=== PATIENT | female | born 1955 | race Caucasian/White ===

== ENCOUNTER 2018-06-23 15:24 | Outpatient (REF) | payer BC, SELFPAY ==
[2018-06-23 21:25] LABS: Cholesterol 223 mg/dL (50-200); HDL Cholesterol 64 mg/dL (40-60); LDL CHOLESTEROL 140 mg/dL (<100); TSH (W/Ref FT4) 1.26 uIU/mL (0.358-3.74); Triglyceride 139 mg/dL (30-150); Vitamin B12 376 pg/mL (193-986)
== END 2018-06-23 15:44 ==
LOC: NCHCN 15:24
PROVIDERS: PCP Internal Medicine; Visit Provider Nurse Practitioner Family
DX: F41.1 Generalized anxiety disorder (principal); E03.9 Hypothyroidism, unspecified
CPT/HCPCS: 80061; 82306; 83721; 82607; 84443

== ENCOUNTER 2019-08-13 12:22 | Outpatient (REF) | payer BC, SELFPAY ==
[2019-08-13 21:40] LABS: TSH 1.32 uIU/mL (0.36-3.74)
== END 2019-08-13 12:42 ==
LOC: NCHCN 12:22
PROVIDERS: PCP Internal Medicine; Visit Provider Internal Medicine
DX: E03.9 Hypothyroidism, unspecified (principal)
CPT/HCPCS: 84443

== ENCOUNTER 2021-06-16 07:59 | Outpatient (REF) | payer MEDICARE, BC, SELFPAY ==
[2021-06-16 14:57] LABS: Anion Gap 5.5 mmol/L (3-11); BUN 11 mg/dL (7-18); CO2 31.5 mmol/L (21.0-32.0); CREATININE 0.9 mg/dL (0.55-1.02); Calcium 9.4 mg/dL (8.5-10.1); Calculated LDL 130 mg/dL (<100); Chloride 103 mmol/L (98-107); Cholesterol 213 mg/dL (<200); Glucose 85 mg/dL (74-106); HDL Cholesterol 63 mg/dL (40-60); Potassium 4.2 mmol/L (3.5-5.1); Sodium 140 mmol/L (136-145); TSH 1.34 uIU/mL (0.36-3.74); Triglyceride 104 mg/dL (<150)
== END 2021-06-16 08:00 | disposition home or self-care (01) ==
LOC: NCHCN 07:59
PROVIDERS: PCP Internal Medicine; Visit Provider Internal Medicine
DX: E03.9 Hypothyroidism, unspecified (principal); E78.5 Hyperlipidemia, unspecified; Z00.00 Encounter for general adult medical examination without abnormal findings
CPT/HCPCS: 80048; 80061; 84443

== ENCOUNTER 2022-06-21 15:11 | Outpatient (REF) | payer MEDICARE, BC, SELFPAY ==
[2022-06-21 21:12] LABS: TSH 1.06 uIU/mL (0.36-3.74)
== END 2022-06-21 15:12 | disposition home or self-care (01) ==
LOC: NCHCN 15:11
PROVIDERS: PCP Internal Medicine; Visit Provider Internal Medicine
DX: E03.9 Hypothyroidism, unspecified (principal)
CPT/HCPCS: 84443

== ENCOUNTER 2023-03-29 15:37 | Outpatient (REF) | payer MEDICARE, BC, SELFPAY ==
[2023-03-29 21:46] LABS: Anion Gap 9.4 mmol/L (3-11); BUN 15 mg/dL (7-18); CO2 27.6 mmol/L (21.0-32.0); CREATININE 0.7 mg/dL (0.55-1.02); Chloride 105 mmol/L (98-107); Estimated GFR 94.15 (mL/min/1.73m2); Folate 18.3 ng/mL (8.6-20.0); Glucose 101 mg/dL (74-106); Potassium 4.2 mmol/L (3.5-5.1); Sodium 142 mmol/L (136-145); Vitamin B12 470 pg/mL (193-986)
== END 2023-03-29 15:38 | disposition home or self-care (01) ==
LOC: NCHCN 15:37
PROVIDERS: PCP Internal Medicine; Visit Provider Family Medicine
DX: R20.0 Anesthesia of skin (principal)
CPT/HCPCS: 80048; 82607; 82746

== ENCOUNTER 2023-06-24 21:23 | Outpatient (REF) | payer MEDICARE, BC, SELFPAY ==
[2023-06-24 17:00] LABS: Calculated LDL 114 mg/dL (<100); Cholesterol 193 mg/dL (<200); HDL Cholesterol 61 mg/dL (40-60); TSH 1.05 uIU/mL (0.36-3.74); Triglyceride 91 mg/dL (<150)
== END 2023-06-24 21:24 | disposition home or self-care (01) ==
LOC: NCHCN 21:23
PROVIDERS: PCP Internal Medicine; Visit Provider Internal Medicine
DX: E03.9 Hypothyroidism, unspecified (principal); E78.5 Hyperlipidemia, unspecified
CPT/HCPCS: 80061; 84443

== ENCOUNTER 2024-06-24 13:59 | Outpatient (REF) | payer MEDICARE, BC, SELFPAY ==
[2024-06-24 21:43] LABS: TSH 0.99 uIU/mL (0.36-3.74)
== END 2024-06-24 14:00 | disposition home or self-care (01) ==
LOC: NCHCN 13:59
PROVIDERS: PCP Internal Medicine; Visit Provider Internal Medicine
DX: E03.9 Hypothyroidism, unspecified (principal)
CPT/HCPCS: 84443

== ENCOUNTER 2025-03-17 13:55 | Outpatient (REF) | payer MEDICARE, BC, SELFPAY ==
[2025-03-17 16:31] LABS: ALT 33 U/L (14-59); AST 21 U/L (15-37); Albumin 3.6 g/dL (3.4-5.0); Alkaline Phosphatase 79 U/L (46-116); Anion Gap 6.0 mmol/L (3-11); BUN 17 mg/dL (7-18); Bilirubin, Total 0.8 mg/dL (0.2-1.0); CO2 27.0 mmol/L (21.0-32.0); Calcium 9.3 mg/dL (8.5-10.1); Chloride 107 mmol/L (98-107); Estimated GFR 92.98 (mL/min/1.73m2); Glucose 95 mg/dL (74-106); Magnesium 2.1 mg/dL (1.8-2.4); Potassium 4.4 mmol/L (3.5-5.1); Sodium 140 mmol/L (136-145); TSH 1.14 uIU/mL (0.36-3.74); Total Protein 6.9 g/dL (6.4-8.2)
== END 2025-03-17 13:56 | disposition home or self-care (01) ==
LOC: NCHCN 13:55
PROVIDERS: PCP Internal Medicine; Visit Provider Internal Medicine
DX: R25.2 Cramp and spasm (principal)
CPT/HCPCS: 80053; 83735; 84443

== ENCOUNTER 2025-07-29 11:03 | Outpatient (REF) | payer MEDICARE, BC, SELFPAY ==
[2025-07-29 15:51] LABS: TSH 1.86 uIU/mL (0.55-4.78)
[2025-07-29 15:58] LABS: Anion Gap 5.4 mmol/L (3-11); BUN 13 mg/dL (9-23); CO2 28.6 mmol/L (20.0-31.0); Calcium 8.8 mg/dL (8.3-10.6); Chloride 106 mmol/L (98-107); Cholesterol 222 mg/dL (<200); Glucose 84 mg/dL (74-106); HDL Cholesterol 63 mg/dL (>40); Potassium 4.3 mmol/L (3.5-5.1); Sodium 140 mmol/L (136-145)
== END 2025-07-29 11:04 | disposition home or self-care (01) ==
LOC: NCHCN 11:03
PROVIDERS: PCP Internal Medicine; Visit Provider Internal Medicine
DX: E78.5 Hyperlipidemia, unspecified (principal); E03.9 Hypothyroidism, unspecified
CPT/HCPCS: 80048; 80061; 84443